=== PATIENT | male | born 1950 | race Caucasian/White ===

== ENCOUNTER 2017-11-12 20:57 | Observation (INO) ==
[2017-11-12 22:28] LABS: Basophils # 0.1 K/mcL (0.0-0.2); Basophils % 0.5 %; Eosinophils # 0.4 K/mcL (0.0-0.6); Eosinophils % 3.9 %; Hematocrit 39.1 % (37.5-50.1); Immature Granulocytes % 0.6 % (0-4); Lymphocytes # 1.6 K/mcL (0.6-4.6); Lymphocytes % 14.9 %; Mean Corpuscular HGB Conc 30.7 g/dL (31.6-35.5); Mean Corpuscular Hemoglobin 28.9 pg (28.0-33.3); Mean Corpuscular Volume 94.2 fL (83.0-100.0); Mean Platelet Volume 10.7 fL (9.4-12.4); Monocytes # 0.8 K/mcL (0.0-1.3); Monocytes % 7.4 %; Neutrophils # 7.6 K/mcL (1.6-8.9); Platelet Count 274 K/mcL (140-400); Red Blood Count 4.15 M/mcL (4.19-5.50); Red Cell Distribution Width 14.2 % (11.5-14.5); Segmented Neutrophils % 72.7 %
[2017-11-12 22:47] LABS: BUN/Creatinine Ratio 25 (6-26); Blood Urea Nitrogen 20 mg/dL (8-23); Calcium 8.3 mg/dL (8.6-10.3); Carbon Dioxide 24 mEq/L (23-29); Chloride 112 mEq/L (98-107); Glucose 88 mg/dL (70-105); Osmolality,Calculated 292 (280-300); Sodium 140 mEq/L (136-145); eGFR For African Americans > 60 (> 60); eGFR For Non-African Americans > 60 (> 60)
--- NOTE | 2017-11-12 23:22 | Emergency Department Note ---
Disposition Clinical Impression: Rectal bleeding Crohns disease Qualifiers: Gastrointestinal tract location: small and large intestine Digestive disease complication type: with rectal bleeding Qualified Code(s): K50.811 - Crohn's disease of both small and large intestine with rectal bleeding Disposition: Admitted As Inpatient Condition: Good Time of Disposition: 00:49 GI Bleed HPI - General Chief complaint: ED GI Bleed Stated complaint: rectal bleeding Time Seen by Provider: 11/12/17 22:37 Source: patient Limitations: no limitations Nursing Notes Reviewed: Yes Vital Signs Reviewed: Yes - History of Present Illness Pt Subjective Complaint: gross bloody stools 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 Review of Systems: As Per HPI Constitutional: Denies: fever, chills Eyes: Denies: eye pain ENT ED: Denies: throat pain Cardiovascular: Denies: chest pain, palpitations, dyspnea on exertion Respiratory: Denies: dyspnea Gastrointestinal: Reports: as per HPI. Denies: abdominal pain, nausea, vomiting , hematemesis, melena Genitourinary: Denies: dysuria, frequency, hematuria Musculoskeletal: Denies: neck pain Integumentary: Denies: rash Neurological: Denies: headache Psychiatric: Denies: anxiety Endocrine: Denies: fatigue Hematological/Lymphatic: Denies: easy bleeding, easy bruising Allergic/Immunologic: Denies: facial swelling, urticaria Past Medical History - Past Medical History Medical history: Reports: other - Social History Smoking Status: Current every day smoker Smokeless Tobacco Status: No Alcohol use: Reports: occasionally Drug use: Reports: none Physical Exam - General Limitations: no limitations General appearance: alert, in no apparent distress - Head Head exam: normocephalic - Eye Eye exam: Present: EOMI. Absent: conjunctival injection - ENT ENT exam: mucous membranes moist - Neck Neck exam: Present: full ROM - Chest Chest inspection: Present: normal inspection, symmetric chest wall rise - Respiratory Respiratory exam: Present: normal lung sounds bilaterally. Absent: respiratory distress, wheezes, stridor, accessory muscle use - Cardiovascular Cardiovascular exam: Present: regular rate, normal rhythm - Abdominal Exam Abdominal exam: Present: soft, Non-Tender. Absent: tenderness, distention, guarding, rebound - Rectal Exam Rectal exam: Present: normal rectal tone, bloody stool, tenderness, other ( slightly indurated palpable mass perirectal on left). Absent: black stool, fecal impaction, prostate tenderness - Extremities Exam Extremities exam: Present: normal inspection, full ROM, normal capillary refill - Back Exam Back exam: Present: full ROM - Neurological Exam Neurological exam: Present: alert, oriented X3 - Psychiatric Psychiatric exam: Present: normal affect, normal mood - Skin Skin exam: Present: warm, dry, intact, normal color. Absent: rash, cyanosis, diaphoresis Course Course Narrative: 67-year-old male with known history of Crohn's currently on Vedolizumab treatment presents with complaint of rectal bleeding that started earlier today. He mentioned he noticed some earlier in the day, then his most recent bowel movement and had worsened. He describes it as bright red. Covering the toilet bowl. 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 He is followed at the [facility]. He denies any abdominal tenderness, no syncopal symptoms, melena, blood thinners, fevers, chills. Vitals are within normal limits. They appear stable. On examination patient is alert and oriented 3. No acute distress. On exam, melinda blood and perirectal area. Work up initiated. - Reevaluation(s) Reevaluation #1: Laboratory shows slight decrease in hemoglobin at 12.0. Vitals stable within normal limits. Patient denies abdominal tenderness. Discussed patient with Dr. Jacinto, who agreed with decision to admit for rectal bleeding, history of Crohn 's. Time: 23:48 Reevaluation #2: Pt discussed with and accepted by hospitalist, Dr. Reid Time: 00:49 Vital Signs Temperature 97.8 F 11/12/17 21:04 Pulse Rate 74 11/12/17 21:04 Respiratory Rate 18 11/12/17 21:04 Blood Pressure 123/92 11/12/17 21:04 O2 Sat by Pulse Oximetry 99 02/10/18 21:04 Temperature 97.8 F 11/12/17 21:04 Pulse Rate 74 11/12/17 21:04 Respiratory Rate 18 11/12/17 21:04 Blood Pressure 123/92 11/12/17 21:04 O2 Sat by Pulse Oximetry 99 11/12/17 21:04 Oxygen Delivery Oxygen Delivery Room Air GI Bleed - Lab Data Lab results reviewed: Yes I reviewed the patient's lab results. Result diagrams: 11/12/17 22:15 11/12/17 22:15 Lab Results 11/12/17 11/12/17 11/12/17 Range/Units 22:15 22:15 22:15 WBC 10.5 (4.3-11.1) K/mcL RBC 4.15 L (4.19-5.50) M/mcL Hgb 12.0 L (12.9-16.9) g/dL Hct 39.1 (37.5-50.1) % MCV 94.2 (83.0-100.0) fL MCH 28.9 (28.0-33.3) pg MCHC 30.7 L (31.6-35.5) g/dL RDW 14.2 (11.5-14.5) % Plt Count 274 (140-400) K/mcL MPV 10.7 (9.4-12.4) fL Immature Gran % 0.6 (0-4) % Seg Neutrophils % 72.7 % Lymphocytes % 14.9 % Monocytes % 7.4 % Eosinophils % 3.9 % Basophils % 0.5 % Neutrophils # 7.6 (1.6-8.9) K/mcL Lymphocytes # 1.6 (0.6-4.6) K/mcL Monocytes # 0.8 (0.0-1.3) K/mcL Eosinophils # 0.4 (0.0-0.6) K/mcL Basophils # 0.1 (0.0-0.2) K/mcL Sodium 140 (136-145) mEq/L Potassium 4.0 (3.5-5.1) mEq/L Chloride 112 H (98-107) mEq/L Carbon Dioxide 24 (23-29) mEq/L BUN 20 (8-23) mg/dL Creatinine 0.80 (0.70-1.30) mg/dL Est GFR ( Amer) > 60 (> 60) Est GFR (Non-Af Amer) > 60 (> 60) BUN/Creatinine Ratio 25 (6-26) Glucose 88 (70-105) mg/dL Calculated Osmolality 292 (280-300) Calcium 8.3 L (8.6-10.3) mg/dL Stool Occult Blood (Negative) Blood Type B POSITIVE Antibody Screen NEGATIVE 11/12/17 Range/Units 23:19 WBC (4.3-11.1) K/mcL RBC (4.19-5.50) M/mcL Hgb (12.9-16.9) g/dL Hct (37.5-50.1) % MCV (83.0-100.0) fL MCH (28.0-33.3) pg MCHC (31.6-35.5) g/dL RDW (11.5-14.5) % Plt Count (140-400) K/mcL MPV (9.4-12.4) fL Immature Gran % (0-4) % Seg Neutrophils % % Lymphocytes % % Monocytes % % Eosinophils % % Basophils % % Neutrophils # (1.6-8.9) K/mcL Lymphocytes # (0.6-4.6) K/mcL Monocytes # (0.0-1.3) K/mcL Eosinophils # (0.0-0.6) K/mcL Basophils # (0.0-0.2) K/mcL Sodium (136-145) mEq/L Potassium (3.5-5.1) mEq/L Chloride (98-107) mEq/L Carbon Dioxide (23-29) mEq/L BUN (8-23) mg/dL Creatinine (0.70-1.30) mg/dL Est GFR ( Amer) (> 60) Est GFR (Non-Af Amer) (> 60) BUN/Creatinine Ratio (6-26) Glucose (70-105) mg/dL Calculated Osmolality (280-300) Calcium (8.6-10.3) mg/dL Stool Occult Blood Positive A (Negative) Blood Type Antibody Screen - Radiology Data Radiology results reviewed: Yes I reviewed the patient's radiology results. Attestation Statement - Attestation Attestation: For this encounter, I have reviewed the BLACK PULLER or PA documentation, treatment plan, and medical decision making; and I have had face to face time with this patient. Patient to ED with rectal bleeding. History of Crohn's. Recent laser on any medication a couple months ago. He has never had bleeding like this. Denies abdominal pain. Soft abdomen on exam. Expiratory wheezing. Plan. DuoNeb. Labs stable. Steroids and admission.
[2017-11-13] MEDS ORDERED: Ipratropium/Albuterol Neb 3 ML IH ONE (01:01)
[2017-11-13] MEDS ORDERED: methylPREDNISolone 125 MG/2 ML VIAL IVP ONE (01:04)
[2017-11-13] MEDS ORDERED: Naloxone 0.4 MG/ML INJ IVP PRN (01:43)
[2017-11-13] MEDS ORDERED: Ipratropium/Albuterol Neb 3 ML IH PRN ×2 (01:46→08:45)
--- NOTE | 2017-11-13 01:49 | Internal Med History&Physical ---
Date of Encounter: 11/13/17 Time of Encounter: 01:47 Assessment and Plan (1) Rectal bleeding Current visit: Yes Status: Acute clears for now monitor 24-48 hours trend H&H IVF (2) Crohns disease Current visit: Yes Status: Acute clinically, does not appear to be consistent with flare check ESR , CRP follow up with Gi Dr Zazueta [facility] Qualifiers: Gastrointestinal tract location: small and large intestine Digestive disease complication type: without complication Qualified Code(s): K50.80 - Crohn's disease of both small and large intestine without complications (3) Reactive airway disease Current visit: Yes Status: Acute prn duonebs Qualifiers: Asthma severity: moderate Asthma complication type: uncomplicated Qualified Code(s): J45.40 - Moderate persistent asthma, uncomplicated Internal Medicine - H&P: HPI Chief complaint: rectal bleeding History of present illness: Mr. Constantino is a 67 year old male who presents with 1 day hx of rectal bleeding. He has a hx of crohns since 1993 and currently on biologics entyvio and follows with Dr Zazueta at [facility]. He has had 2 bowel resection in 1997 and later in 2013. At baseline, he has approx 10 loose BM daily. He started to have painless BRBPR mixed in with stools this morning. Later this evening, he developed 3 more episodes. Painless. Described as "red soupy blood" mixed in with stools. Had C-scope last Jul 2017 and denies any knowledge of hemorrhoids. EKG personally reviewed with rate 60, supraventricular rhythm ?? pm read ?? brugada pattern on read ??? Past Med Surg Social Fam HX - Past Medical History Medical history: other - Social History Smoking Status: Current every day smoker Smokeless Tobacco Status: No Alcohol use: occasionally Drug use: none Internal Medicine - H&P: Meds Vedolizumab [Entyvio (For Outpatient Infusion)] 300 mg IV Q2M 11/13/17 [History] 3 Allergy/AdvReac Type Severity Reaction Status Date / Time No Known Allergies Allergy Verified 11/12/17 21:07 All Systems PM: A 10-system review of systems was performed and is negative for pertinent findings except as documented above in the HPI. Review of systems: ROS 14 point review of systems reviewed as best as possible given presentation. Pertinent positive or negative as per HPI or otherwise reviewed as negative - Constitutional Vitals: Temp Pulse Resp BP Pulse Ox 97.8 F 74 16 123/92 98 11/12/17 21:04 11/12/17 21:04 11/13/17 01:13 11/12/17 21:04 11/13/17 01:13 Exam: General - AAO x 3 Psych - Appropriate affect/speech. No agitation Eyes - ABIOLA. Eye lids intact. No scleral icterus Heart - Sinus. RRR. S1 and S2 present. No added HS/murmurs appreciated. No elevated JVD appreciated. Lung - Adequate air entry b/l, No crackles. Scant baseline wheezes appreciated GI - Soft, non-tender. Abdominal scar present. No hepatosplenomegaly/ascites. BS + - No CVA/suprapubic tenderness or palpable bladder distension Skin - Intact. No rash/petechiae/ecchymosis. Warm extremities Internal Med - H&P Results - Labs CBC & Chem 7: 11/12/17 22:15 11/12/17 22:15
[2017-11-13] MEDS: Ringers Solution, Lactated 1,000 ML IVC SCH ×2 (02:09→12:27)
[2017-11-13 05:47] LABS: Hemoglobin 9.7 g/dL (12.9-16.9)
[2017-11-13 05:49] LABS: INR 1.2; Prothrombin Time 13.5 Seconds (9.4-12.1)
[2017-11-13 05:52] LABS: Activated Partial Thrombo Time 35.9 Seconds (26.0-36.0)
[2017-11-13] MEDS ORDERED: Budesonide/Formoterol 160/4.5 MDI IH SCH (08:45)
--- NOTE | 2017-11-13 08:47 | Internal Med Progress Note ---
Date of Encounter: 11/13/17 Time of Encounter: 08:46 - Assessment and plan (1) Rectal bleeding Current Visit: Yes Status: Acute (2) Crohns disease Current Visit: Yes Status: Acute Qualifiers: Gastrointestinal tract location: small and large intestine Digestive disease complication type: without complication Qualified Code(s): K50.80 - Crohn's disease of both small and large intestine without complications (3) Reactive airway disease Current Visit: Yes Status: Acute Qualifiers: Asthma severity: moderate Asthma complication type: uncomplicated Qualified Code(s): J45.40 - Moderate persistent asthma, uncomplicated - Constitutional Vitals: Temp Pulse Resp BP Pulse Ox 98.0 F 51 14 100/49 96 11/13/17 07:24 11/13/17 07:24 11/13/17 07:24 11/13/17 07:24 11/13/17 07:24 Internal Medicine: Result - Labs CBC & Chem 7: 11/13/17 05:22 11/12/17 22:15 Labs: Short CBC 11/13/17 Range/Units 05:22 Hgb 9.7 L D (12.9-16.9) g/dL Hct 31.0 L (37.5-50.1) % - ABG Interpretation ABG results: PT/INR, D-dimer PT 13.5 Seconds (9.4-12.1) H 11/13/17 05:22 Consult Discharge Plan - Plan [facility]errals: [facility] [Primary Care Provider[facility] -
[2017-11-13 09:59] LABS: Hematocrit 30.2 % (37.5-50.1); Hemoglobin 9.4 g/dL (12.9-16.9)
[2017-11-13 14:42] VITALS: BP 99/54
[2017-11-13 16:26] LABS: Hematocrit 30.8 % (37.5-50.1); Hemoglobin 9.6 g/dL (12.9-16.9)
--- NOTE | 2017-11-13 16:52 | Discharge Summary ---
<Beau Mcclure - Last Filed: 11/13/17 16:46> Date of Encounter: 11/13/17 Time of Encounter: 08:00 - Discharge Diagnosis (1) Rectal bleeding Priority: Primary Status: Acute (2) Crohns disease Priority: Primary Status: Acute Qualifiers: Gastrointestinal tract location: small and large intestine Digestive disease complication type: without complication Qualified Code(s): K50.80 - Crohn's disease of both small and large intestine without complications (3) Reactive airway disease Priority: Secondary Status: Acute Qualifiers: Asthma severity: moderate Asthma complication type: uncomplicated Qualified Code(s): J45.40 - Moderate persistent asthma, uncomplicated - Discharge Medications Prescriptions: predniSONE [PredniSONE] 40 mg PO DAILY 5 Days #10 tablet Home Medications: Albuterol Sulfate [Albuterol Inhaler] 2 puff AER Q6H PRN 11/13/17 [History] Budesonide/Formoterol 160/4.5 [Symbicort 160/4.5] 1 puff AER Q12H 11/13/17 [ History] Cholecalciferol (Vitamin D3) [Vitamin D3] 5,000 unit PO DAILY 11/13/17 [History] Cholestyramine 4 gm PO BIDAC 11/13/17 [History] Ferrous Gluconate 324 mg PO BID 11/13/17 [History] Ipratropium [ATROVENT Inhaler] 2 puff AER TID PRN 11/13/17 [History] Lactobacillus Acidophilus [Acidophilus] 1 cap PO DAILY 11/13/17 [History] Loperamide [Imodium] 2 tab PO DAILY 11/13/17 [History] Multivitamin [One Daily Essential] 1 tab PO DAILY 11/13/17 [History] Vedolizumab [Entyvio (For Outpatient Infusion)] 300 mg IV Q2M 11/13/17 [History] Vit A/Vit C/Vit E/Zinc/Copper [Preservision Areds Tablet] 1 each PO BID [History] Vitamin A 10,000 unit PO DAILY 11/13/17 [History] Vitamin B Complex 1 cap PO DAILY 11/13/17 [History] predniSONE [PredniSONE] 40 mg PO DAILY 5 Days #10 tablet 11/13/17 [Rx] Allergies/Adverse Reactions: 3 Allergy/AdvReac Type Severity Reaction Status Date / Time No Known Allergies Allergy Verified 11/12/17 21:07 Date of admission: 11/13/17 00:58 Primary care physician: [facility] Discharging clinician: Beau Mcclure Anticipated date of discharge: 11/13/17 - Patient Status Disposition: Home, Self-Care Condition: Good Functional capacity at discharge: independent ambulation Overall status at discharge: patient is back to baseline - Discharge Instructions Instructions: Rectal Bleeding (DC) Follow Up With: [facility] [Primary Care Provider] - Additional Instructions: Follow up with your PCP in the next 3-5 days 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 Take medications as prescribed. - Diet and Activity Activity: increase activity as tolerated Diet: advance to your usual diet Interval History: Mr. Constantino 67 yo male with pmh of Crohns disease, Reactive airway disease was admitted to the general medical floor for blood per rectum which started prior to admission. He stated he had a his last colonoscopy in June and after his crohns medications were changed in August. He had several episodes of blood per rectum prior to admission and several in the emergency department prior to transfer to the floor. He has had several non-bloody bowel movements since admission. Hgb stable at 9.7. He had some mild wheezing with expiration, no oxygen required and without labored effort. Patients vitals and exam were without concerning findings. He was seen and deemed stable for discharge with PO prednisone for 5 days for mild expiratory wheezing. Hospital course: Mr. Constantino is a 67 year old male - Time Spent with Patient Total time spent providing and/or coordinating discharge services: - Constitutional Vitals: Temp Pulse Resp BP Pulse Ox 97.4 F L 54 18 99/54 96 11/13/17 14:40 11/13/17 14:40 11/13/17 14:40 11/13/17 14:40 11/13/17 14:40 - Head Head exam: Present: atraumatic, normocephalic - Eye Eye exam: Present: PERRL, conjuntiva pink, sclera anicteric Pupils: Present: PERRL - Neck Neck exam general surgery: Present: supple, trachea midline. Absent: lymphadenopathy - Respiratory Respiratory exam: Present: wheezes (mild expiratory wheezing.). Absent: accessory muscle use, rales, rhonchi - Cardiovascular Cardiovascular exam: Present: RRR, +S1, +S2. Absent: diastolic murmur, gallop, rubs, systolic murmur - GI/Abdominal GI/Abdominal exam: Present: normal bowel sounds, soft, no peritoneal signs. Absent: distended, tenderness - Extremities Exam Extremities exam: Present: warm, radial pulses palpable and symmetrical. Absent : calf tenderness, cyanotic, pedal edema - Neurological Exam Neurological exam: Present: CN II-XII intact, oriented X3, no focal deficits. Absent: pronater drift, facial droop, speech deficit - Skin Skin exam: Present: dry, intact <Juan Alberto Agustin - Last Filed: 11/13/17 18:14> Date of Encounter: 11/13/17 - Discharge Diagnosis (1) Rectal bleeding Status: Resolved (2) Crohns disease Status: Acute Qualifiers: Gastrointestinal tract location: small and large intestine Digestive disease complication type: without complication Qualified Code(s): K50.80 - Crohn's disease of both small and large intestine without complications (3) Reactive airway disease Status: Chronic Qualifiers: Asthma severity: moderate Asthma complication type: uncomplicated Qualified Code(s): J45.40 - Moderate persistent asthma, uncomplicated (4) Tobacco abuse Priority: Secondary Status: Chronic Date of admission: 11/13/17 00:58 Primary care physician: PCP [facility] Hospital course: Mr. Constantino is a 67 year old male - Time Spent with Patient Total time spent providing and/or coordinating discharge services: - Constitutional Vitals: Temp Pulse Resp BP Pulse Ox 97.4 F L 54 18 99/54 96 11/13/17 14:40 11/13/17 14:40 11/13/17 14:40 11/13/17 14:40 11/13/17 14:40 - Attending Attestation I examined this patient and my medical decision-making was reviewed with the Resident Physician on 11/13/17. I agree with the documented findings, disposition and treatment plan as described except to the extent set forth below. Mr Constantino was placed in observation for acute LGI bleed. His H/H did decrease but has remained stable throughout afternoon. He has had no further bleeding. He is afebrile with stable vitals and ready for discharge home. Exam alert. Comfortable Heart reg No wheeze abd soft Plan D/C home Follow up with GI at [facility].
--- NOTE | 2017-11-14 16:55 | Electrocardiograph Report ---
[place] [id number] Test Date: 2017-11-12 Pat Name: Lm Constantino Department: 104 Room: 3A Gender: M Region Manager: FELI : 1950 Requested By: Gabriela See Order Number: [id number] Reading MD: Haja Ricci DO Measurements Intervals [place] Rate: 60 P: NC: 0 QRS: 9 QRSD: 115 T: 50 QT: 419 QTc: 419 Interpretive Statements SINUS RHYTHM Electronically Signed On 11-14-2017 16:53:58 EST by Haja Ricci DO
== END 2017-11-13 18:15 | disposition home or self-care (01) ==
LOC: EMEROO 20:57 → 3ANU 20:57 → SUATTDRO 11-13 00:58 → 3ANU 11-13 01:30
PROVIDERS: ADMIT Internal Medicine Hematology & Oncology; ATTEND Internal Medicine

== ENCOUNTER 2020-01-13 22:31 | Inpatient (IN) ==
[2020-01-13 23:21] LABS: Basophils % 0.2 %; Eosinophils # 0.1 K/mcL (0.0-0.6); Eosinophils % 0.5 %; Hemoglobin 10.9 g/dL (12.9-16.9); Lymphocytes # 0.4 K/mcL (0.6-4.6); Lymphocytes % 2.1 %; Mean Corpuscular HGB Conc 32.1 g/dL (31.6-35.5); Mean Corpuscular Hemoglobin 27.7 pg (28.0-33.3); Mean Corpuscular Volume 86.5 fL (83.0-100.0); Mean Platelet Volume 10.7 fL (9.4-12.4); Monocytes # 0.7 K/mcL (0.0-1.3); Neutrophils # 14.8 K/mcL (1.6-8.9); Platelet Count 363 K/mcL (140-400); Red Blood Count 3.93 M/mcL (4.19-5.50); Red Cell Distribution Width 16.1 % (11.5-14.5); Segmented Neutrophils % 90.2 %; White Blood Count 16.4 K/mcL (4.3-11.1)
[2020-01-13 23:42] LABS: BUN/Creatinine Ratio 28 (6-26); Blood Urea Nitrogen 26 mg/dL (8-23); Calcium 7.7 mg/dL (8.6-10.3); Carbon Dioxide 18 mEq/L (23-29); Chloride 110 mEq/L (98-107); Glucose 92 mg/dL (70-105); Osmolality,Calculated 286 (280-300); Potassium 3.9 mEq/L (3.5-5.1); Sodium 136 mEq/L (136-145); eGFR For African Americans > 60 (> 60); eGFR For Non-African Americans > 60 (> 60)
[2020-01-13 23:44] LABS: Troponin I 0.03 ng/mL (< 0.04)
[2020-01-13] MEDS ORDERED: Isovue-370 500 ML BOTTLE IVP ONE (23:49)
[2020-01-14] MEDS ORDERED: methylPREDNISolone 125 MG/2 ML VIAL IVP ONE (00:53)
[2020-01-14] MEDS ORDERED: Azithromycin 500 MG in D5% in Water 250 ML IVPB ONE (00:53)
[2020-01-14] MEDS ORDERED: cefTRIAXone 1,000 MG in Water for inj. (sterile) 10 ML IVP ONE (00:53)
[2020-01-14 02:28] LABS: C-Reactive Protein 67 mg/L (Less than 10)
[2020-01-14 02:46] LABS: Ferritin 398 ng/mL (20-250)
[2020-01-14] MEDS ORDERED: Ondansetron 4 MG/2 ML VIAL IVP PRN (03:25)
[2020-01-14] MEDS ORDERED: *HR* HYDROcodone/Acet 5/325 mg TABLET PO PRN (03:25)
[2020-01-14] MEDS ORDERED: Acetaminophen 325 MG TABLET PO PRN (03:25)
[2020-01-14] MEDS ORDERED: Naloxone 0.4 MG/ML INJ IVP PRN (03:25)
[2020-01-14] MEDS ORDERED: Ipratropium 1 PUFF INHALER IH PRN (03:26)
[2020-01-14] MEDS ORDERED: Furosemide 40 MG/4 ML VIAL IVP ONE ×2 (03:28→13:07)
[2020-01-14 05:26] LABS: Basophils % 0.2 %; Eosinophils % 0.2 %; Hematocrit 35.3 % (37.5-50.1); Hemoglobin 11.3 g/dL (12.9-16.9); Immature Granulocytes % 2.7 % (0-4); Lymphocytes # 0.4 K/mcL (0.6-4.6); Lymphocytes % 2.5 %; Mean Corpuscular Hemoglobin 27.6 pg (28.0-33.3); Mean Corpuscular Volume 86.1 fL (83.0-100.0); Mean Platelet Volume 10.7 fL (9.4-12.4); Monocytes # 0.2 K/mcL (0.0-1.3); Monocytes % 1.2 %; Neutrophils # 14.4 K/mcL (1.6-8.9); Platelet Count 435 K/mcL (140-400); Red Cell Distribution Width 16.3 % (11.5-14.5); Segmented Neutrophils % 93.2 %; White Blood Count 15.4 K/mcL (4.3-11.1)
[2020-01-14 05:37] LABS: BUN/Creatinine Ratio 28 (6-26); Blood Urea Nitrogen 27 mg/dL (8-23); Calcium 7.8 mg/dL (8.6-10.3); Carbon Dioxide 18 mEq/L (23-29); Chloride 109 mEq/L (98-107); Chol/HDL Ratio 14.8 (0-4.9); Cholesterol 133 mg/dL (< 200); Glucose 170 mg/dL (70-105); HDL Cholesterol 9 mg/dL (40-59); LDL Cholesterol,Calculated 106 mg/dL (0-99); Magnesium 1.6 mg/dL (1.6-2.6); Osmolality,Calculated 293 (280-300); Potassium 3.9 mEq/L (3.5-5.1); Sodium 137 mEq/L (136-145); Triglycerides 92 mg/dL (< 150); Troponin I 0.04 ng/mL (< 0.04); eGFR For African Americans > 60 (> 60); eGFR For Non-African Americans > 60 (> 60)
[2020-01-14] MEDS ORDERED: Aspirin 325 MG TABLET PO SCH (05:53)
[2020-01-14] MEDS ORDERED: Budesonide/Formoterol 160/4.5 1 PUFF INH IH SCH (06:00)
[2020-01-14] MEDS: *HR* Heparin 5,000 UNIT/ML VIAL SQ SCH ×2 (06:01→17:19)
[2020-01-14] MEDS: Cholestyramine 4 GM POWD.PACK PO SCH ×2 (07:32→13:50)
[2020-01-14] MEDS: Budesonide/Formoterol 160/4.5 1 PUFF INH IH SCH ×2 (07:58→20:22)
[2020-01-14] MEDS ORDERED: cefTRIAXone 2,000 MG in Water for inj. (sterile) 20 ML IVP SCH (14:00)
[2020-01-14] MEDS: predniSONE 20 MG TABLET PO SCH (14:00)
[2020-01-14] MEDS: Magic Mouthwash 10 ML UD Cup PO SCH (14:54)
[2020-01-14] MEDS ORDERED: Azithromycin 500 MG in 0.9 % Sodium Chloride 250 ML IVPB SCH (18:00)
[2020-01-14] MEDS ORDERED: cefTRIAXone 1,000 MG in Water for inj. (sterile) 10 ML IVP SCH (18:00)
[2020-01-15 05:14] LABS: Basophils % 0.1 %; Hematocrit 30.1 % (37.5-50.1); Hemoglobin 9.7 g/dL (12.9-16.9); Immature Granulocytes % 2.5 % (0-4); Lymphocytes # 0.6 K/mcL (0.6-4.6); Lymphocytes % 5.4 %; Mean Corpuscular HGB Conc 32.2 g/dL (31.6-35.5); Mean Corpuscular Hemoglobin 27.6 pg (28.0-33.3); Mean Corpuscular Volume 85.5 fL (83.0-100.0); Mean Platelet Volume 10.1 fL (9.4-12.4); Monocytes # 0.5 K/mcL (0.0-1.3); Monocytes % 4.6 %; Neutrophils # 9.7 K/mcL (1.6-8.9); Platelet Count 368 K/mcL (140-400); Red Blood Count 3.52 M/mcL (4.19-5.50); Red Cell Distribution Width 16.5 % (11.5-14.5); Segmented Neutrophils % 87.4 %; White Blood Count 11.1 K/mcL (4.3-11.1)
[2020-01-15 05:30] LABS: Albumin 2.1 g/dL (3.5-5.7); Albumin/Globulin Ratio 0.7 (1.1-2.2); BUN/Creatinine Ratio 39 (6-26); Bilirubin,Direct 1.5 mg/dL (0.0-0.2); Bilirubin,Indirect 1.2 mg/dL (0.0-1.0); Bilirubin,Total 2.7 mg/dL (0.3-1.0); Blood Urea Nitrogen 34 mg/dL (8-23); Calcium 7.1 mg/dL (8.6-10.3); Carbon Dioxide 25 mEq/L (23-29); Chloride 108 mEq/L (98-107); Globulin 3.2 g/dL (2.4-3.5); Glucose 148 mg/dL (70-105); Osmolality,Calculated 296 (280-300); Potassium 3.4 mEq/L (3.5-5.1); Sodium 138 mEq/L (136-145); Total Protein 5.3 g/dL (6.4-8.9); eGFR For African Americans > 60 (> 60); eGFR For Non-African Americans > 60 (> 60)
[2020-01-15] MEDS: *HR* Heparin 5,000 UNIT/ML VIAL SQ SCH (05:32)
[2020-01-15 06:33] VITALS: BP 133/84
[2020-01-15] MEDS: Budesonide/Formoterol 160/4.5 1 PUFF INH IH SCH (08:28)
[2020-01-15] MEDS ORDERED: Furosemide 40 MG/4 ML VIAL IVP SCH (09:00)
[2020-01-15] MEDS: Cholestyramine 4 GM POWD.PACK PO SCH (09:22)
[2020-01-15] MEDS: Magic Mouthwash 10 ML UD Cup PO SCH (09:22)
[2020-01-15] MEDS: predniSONE 20 MG TABLET PO SCH (09:22)
== END 2020-01-15 11:29 | disposition home or self-care (01) | DRG 194 ==
LOC: 2NENU 22:31 → EMEROOARM 22:31 → 2NENU 01-14 02:58 → 3ANU 01-14 23:28
PROVIDERS: ADMIT Internal Medicine; ATTEND Internal Medicine